=== PATIENT | female | born 1965 | race Caucasian/White ===

== ENCOUNTER 2018-02-06 15:38 | Emergency (ER) | payer OTHER, MEDICARE ==
[2018-02-06 15:51] VITALS: RESP 18
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
[2018-02-06 17:51] VITALS: BP 166/91; PULSE 60; TEMP 97.9
== END 2018-02-06 17:51 | disposition home or self-care (01) ==
LOC: EC 15:38
DX: S13.4XXA Sprain of ligaments of cervical spine, initial encounter (principal); I10 Essential (primary) hypertension; Z88.8 Allergy status to other drugs, medicaments and biological substances; Z96.653 Presence of artificial knee joint, bilateral; V47.6XXA Car passenger injured in collision with fixed or stationary object in traffic accident, initial encounter; Y92.410 Unspecified street and highway as the place of occurrence of the external cause
CPT/HCPCS: 70450; 72125; 99284